=== PATIENT | male | born 1950 ===

== ENCOUNTER 2016-11-11 15:55 | Emergency (ER) | payer MEDICARE, OTHER ==
[2016-11-11 16:09] VITALS: BP 118/85
--- NOTE | 2016-11-11 17:11 | UC ---
Skin Complaint HPI - HPI Summary HPI Summary: ONE WEEK OF SKIN REDNESS, WARMTH, AND TENDERNESS ON LEFT SHOULDER; HAD BUGBITE ( NO TICK BITE) SCAB ONE WEEK AGO AND PICKED THE SCAB THREE TIMES. LAST FOUR DAYS AREA OF REDNESS WARMTH AND TENDERNESS HAVE BEEN SPREADING. NO FEVER. - History of Current Complaint Chief Complaint: UCSkin Time Seen by Provider: 11/11/16 16:39 Stated Complaint: SKIN INFLAMMATION Hx Obtained From: Patient Onset/Duration: Gradual Onset, Lasting Weeks, Still Present, Worse Since - FOUR DAYS Skin Exposure Onset/Duration: Days Ago Timing: Constant Onset Severity: Mild Current Severity: Moderate Location: Discrete - LEFT SHOUDLER Character: Swelling, Redness Aggravating: Touch Alleviating: Nothing Associated Signs & Symptoms: Positive: Rash - LEFT SHOUDLER, Tenderness. Negative: Fever, Chills, Wheezing, Chest Pain, Hoarseness, Throat Tightening, Drainage, Bruising, Red Streaks Related History: Possible Reaction to: Insect, Possible Reaction to: Environmental Exposure - Allergy/Home Medications Allergies/Adverse Reactions: Allergies Allergy/AdvReac Type Severity Reaction Status Date / Time No Known Allergies Allergy Verified 03/24/12 17:06 Review of Systems Constitutional: Negative Skin: Rash Eyes: Negative ENT: Negative Respiratory: Negative Cardiovascular: Negative Gastrointestinal: Negative Genitourinary: Negative Motor: Negative Neurovascular: Negative Musculoskeletal: Negative Neurological: Negative Psychological: Negative All Other Systems Reviewed And Are Negative: Yes PMH/Surg Hx/FS Hx/Imm Hx Previously Healthy: Yes - Surgical History Surgical History: Yes Surgery Procedure, Year, and Place: TONSILLECTOMY - Family History Known Family History: Negative: Blood Disorder - Social History Occupation: Retired Lives: With Family Alcohol Use: Occasionally Substance Use Type: Marijuana Smoking Status (MU): Never Smoked Tobacco - Immunization History Most Recent Tetanus Shot: >10 YEARS Physical Exam Triage Information Reviewed: Yes Appearance: Well-Appearing, No Pain Distress, Well-Nourished Vital Signs: Initial Vital Signs Temp 99.9 F 11/11/16 16:06 Pulse 85 11/11/16 16:06 Resp 18 11/11/16 16:06 BP 118/85 11/11/16 16:06 Pulse Ox 100 11/11/16 16:06 Vital Signs Reviewed: Yes Eye Exam: Normal ENT Exam: Normal ENT: Positive: Normal ENT inspection, Hearing grossly normal, TMs normal Dental Exam: Normal Neck exam: Normal Neck: Positive: Supple, Nontender, No Lymphadenopathy Respiratory Exam: Normal Respiratory: Positive: Chest non-tender, Lungs clear, Normal breath sounds, No respiratory distress, No accessory muscle use Cardiovascular Exam: Normal Cardiovascular: Positive: RRR, No Murmur, Pulses Normal Abdominal Exam: Normal Musculoskeletal Exam: Normal Musculoskeletal: Positive: Strength Intact, ROM Intact Neurological Exam: Normal Psychological Exam: Normal Skin: Positive: rashes Course/Dx - Differential Diagnoses - Skin Complaint Differential Diagnoses: Abscess, Cellulitis, Impetigo, MRSA, Poison [place], Poison [place], Tick Born Illness - Diagnoses Provider Diagnoses: CELLULITIS LEFT SHOULDER Discharge - Discharge Plan Condition: Stable Disposition: HOME Prescriptions: Cephalexin CAP* [Keflex CAP*] 500 mg PO QID #40 cap Patient Education Materials: Cellulitis (ED) Referrals: [facility] [Outside] No Primary Care Phys,NOPCP [Primary Care Provider] - Additional Instructions: PRIMARY CARE: There are four major types of clinical preventive care: immunizations, screening , behavioral counseling (sometimes referred to as lifestyle changes), and chemoprevention. All four apply throughout the life span. It is important to establish and to have access to a Primary Care Physician, not only for follow- up regrding acute and chronic problems, but also for preventative care. Images Front/Back of Body, Lg (Starr): 1 - ERYTHEMA HERE 2 - ERYTHEMA HERE
== END 2016-11-11 17:05 | disposition home or self-care (01) ==
LOC: UCEAST 15:55
DX: L03.114 Cellulitis of left upper limb (principal)
CPT/HCPCS: 99202; G0463